=== PATIENT | male | born 1945 | race Caucasian/White ===

== ENCOUNTER → 2016-11-18 | Day surgery (SDC) | payer OTHER ==
[~2016-11-18] VITALS: Ht 180.3 cm; Wt 72.1 kg
[~2016-11-18] MED LIST: ACETAMINOPHEN 1000 MG/100 ML VIAL IV ONE; ACETAMINOPHEN/HYDROcodone 325 MG/5 MG TAB PO PRN; ASPI1TAB69 PO; BELLADONNA ALKALOIDS/OPIUM 60 MG SUPP RECTAL SCH; DEXAMETHASONE SOD PHOS 4 MG/ML VIAL ONE; DICLOFENAC SODIUM 37.5 MG/ML VIAL IV PUSH ONE; DO NOT ADM ANY ANTICOAGULANT DRUGS XX PRN; FAMOTIDINE 20 MG/2 ML VIAL ONE; INSULIN HUMAN REGULAR 1,000 UNITS/10 ML VIAL SQ PRN; IOHEXOL 350 MG/ML 50 ML BTL (for RAD DIAG) OTHER ONE; LACTATED RINGER'S 1000 ML IV SCH; LORA1TAB12 PO; METOPROLOL TARTRATE 25 MG TAB PO PRN; MIDAZOLAM HCL 2 MG/2 ML VIAL ONE; MULT1TAB85 PO; NEOSTIGMINE 3 MG/3 ML SYR IV ONE; ONDANSETRON HCL 4 MG/2 ML VIAL IV PUSH ONE; ONDANSETRON HCL 4 MG/2 ML VIAL IV PUSH PRN; PROPOFOL 200 MG/20 ML AMP IV ONE; SERT-129 PO; SODIUM CHLORID 0.9% 500 ML IV SCH; ceFAZolin 1,000 MG/NS 100 ML IV SCH; ePHEDrine/NS 50 MG/5 ML SYR IV ONE; fentaNYL CITRATE 250 MCG/5 ML AMP ONE
[2016-11-18 07:00] VITALS: BP 118/62; PULSE 55; RESP 20; TEMP 97.6; O2SAT 96
[2016-11-18 07:58] LABS: AUTOMATED NEUTROPHIL # 4.2 TH/MM3 (1.8-7.7); BASOPHIL # 0.1 TH/MM3 (0-0.2); BASOPHIL % 1.2 % (0.0-2.0); EOSINOPHIL # 0.4 TH/MM3 (0-0.4); EOSINOPHIL % 4.7 % (0.0-4.0); HEMO FLAGS DIFF FINAL; LYMPH % 28.1 % (9.0-44.0); LYMPHOCYTE # 2.1 TH/MM3 (1.0-4.8); MEAN CELL VOLUME 89.1 FL (80.0-100.0); MEAN CORPUSCULAR HEMOGLOBIN 31.6 PG (27.0-34.0); MEAN CORPUSCULAR HGB CONC 35.5 % (32.0-36.0); MONO % 9.9 % (0.0-8.0); NEUT % 56.1 % (16.0-70.0); PLATELET COUNT 215 TH/MM3 (150-450); RED CELL DISTRIBUTION WIDTH 12.8 % (11.6-17.2); WHITE BLOOD COUNT 7.5 TH/MM3 (4.0-11.0)
[2016-11-18 08:12] LABS: BICARBONATE 26.3 MEQ/L (21.0-32.0); POTASSIUM 3.7 MEQ/L (3.5-5.1)
[2016-11-18 10:35] VITALS: BP 90/50; PULSE 94; TEMP 97.3; O2SAT 94
--- NOTE | 2016-11-23 23:37 | MP ---
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 OPERATION: Cystoscopy, right retrograde study, bladder biopsy x3 of the left ureteral orifice with fulguration. SURGEON Carmen Vieyra MD. ANESTHESIA: General endotracheal anesthesia FLUIDS: 500 cc Crystalloid. BLOOD LOSS: None. COMPLICATIONS: None. FINDINGS: Some erythema above the left ureteral orifice at the prior tumor site. No significant bladder tumors were identified. The patient tolerated the procedure well. He was transferred to the Recovery Room in stable condition. DRAINS: None. INDICATIONS FOR PROCEDURE: Kayleigh Vieyra is a 70 year-old male with a history of transitional cell carcinoma of the left renal pelvis who underwent a left nephrectomy by Dr. Sage in the past. He also has a history of bladder cancer and he has undergone TURBT as well as BCG therapy for this in the past. He recently underwent cystoscopy by Dr. Sage in his office back in June of 2016 and a small area of erythema/CIS was identified above the left ureteral orifice. The patient desired to go to the operating room to have cystoscopy and bladder biopsy performed of this area due to the prior findings by Dr. Sage. The risks and benefits were discussed and he was willing to proceed. DESCRIPTION OF PROCEDURE: The patient was brought to the operating room, identified by myself as Kayleigh Vieyra. He was placed in the dorsolithotomy position, prepped and draped in the usual sterile fashion. He received preprocedure antibiotics and general endotracheal tube anesthesia was administered. A 22-[place] cystoscope was inserted in the bladder, pancystoscopy just showed some erythema above the left ureteral orifice. The remaining areas of the bladder on pancystoscopy showed no evidence of any bladder tumors or other abnormalities. He did, however, have a high-riding bladder neck and may need a transurethral resection of the bladder neck incision in the future if his voiding symptoms worsen. A 5-[place] open-ended catheter was inserted into the right ureteral orifice and retrograde study was performed. Good filling of the ureter on the right side with good filling also of the collecting system was identified. There were no filling defects identified. Attention then was directed to the area above the left ureteral orifice. Using the cold cup biopsy forceps, bladder biopsies x3 were taken of this area and were sent to pathology. Using the rollerball then this area was fulgurated to provide hemostasis. The bladder was evacuated and then refilled. No evidence of any bleeding was identified. The bladder was then emptied. He was awoken and transferred to recovery in stable condition. The plan for him will be to follow up in six weeks and review the pathology. If evidence of CIS is present, will consider re-instilling BCG for six weeks. Will also better investigate his voiding symptoms and determine if bladder neck incision in the future is warranted. Dylan ESPINAL/SILVIA /9:06 AM /10:57 PM
== END | disposition home or self-care (01) ==
LOC: HSDC 06:08
PROVIDERS: ATTEND Urology
DX: Z85.51 Personal history of malignant neoplasm of bladder (principal); Z85.53 Personal history of malignant neoplasm of renal pelvis; Z90.5 Acquired absence of kidney
CPT/HCPCS: 00910; 52204; 52214; 74420; 80048; 85025; 88305; J0131; J0690; J1100; J1130; J2250; J2405; J2710; J3010; J7120; Q9967; 88307

== ENCOUNTER 2017-05-05 10:04 | Inpatient (IN) | payer OTHER ==
[~2017-05-05] VITALS: Ht 177.8 cm; Wt 72.7 kg
[~2017-05-05 10:04] MED LIST changes: -ACETAMINOPHEN 1000 MG/100 ML VIAL IV ONE; -ACETAMINOPHEN/HYDROcodone 325 MG/5 MG TAB PO PRN; -BELLADONNA ALKALOIDS/OPIUM 60 MG SUPP RECTAL SCH; -DEXAMETHASONE SOD PHOS 4 MG/ML VIAL ONE; -DICLOFENAC SODIUM 37.5 MG/ML VIAL IV PUSH ONE; -DO NOT ADM ANY ANTICOAGULANT DRUGS XX PRN; -FAMOTIDINE 20 MG/2 ML VIAL ONE; -INSULIN HUMAN REGULAR 1,000 UNITS/10 ML VIAL SQ PRN; -IOHEXOL 350 MG/ML 50 ML BTL (for RAD DIAG) OTHER ONE; -LACTATED RINGER'S 1000 ML IV SCH; -METOPROLOL TARTRATE 25 MG TAB PO PRN; -MIDAZOLAM HCL 2 MG/2 ML VIAL ONE; -NEOSTIGMINE 3 MG/3 ML SYR IV ONE; -ONDANSETRON HCL 4 MG/2 ML VIAL IV PUSH ONE; -ONDANSETRON HCL 4 MG/2 ML VIAL IV PUSH PRN; -PROPOFOL 200 MG/20 ML AMP IV ONE; -SODIUM CHLORID 0.9% 500 ML IV SCH; -ceFAZolin 1,000 MG/NS 100 ML IV SCH; -ePHEDrine/NS 50 MG/5 ML SYR IV ONE; -fentaNYL CITRATE 250 MCG/5 ML AMP ONE
[2017-05-05 10:06] VITALS: BP 123/73; PULSE 71; RESP 16; TEMP 97.7; O2SAT 99
[2017-05-05] MEDS ORDERED: ASPI81CH CHEW (10:27)
[2017-05-05] MEDS ORDERED: MULTTAB67 PO (10:27)
[2017-05-05] MEDS ORDERED: LIDOCAINE VISCOUS 2% SOLN 15 ML UDC PO ONE (10:30)
[2017-05-05] MEDS ORDERED: ALUMINUM/MAGNESIUM/SIMETH 30 ML CUP PO ONE (10:30)
[2017-05-05] MEDS ORDERED: SODIUM CHLORIDE 0.9% FLUSH 10 ML FLUSH IVF PRN (10:30)
[2017-05-05 10:47] LABS: AUTOMATED NEUTROPHIL # 10.6 TH/MM3 (1.8-7.7); BASOPHIL # 0.1 TH/MM3 (0-0.2); BASOPHIL % 0.7 % (0.0-2.0); EOSINOPHIL # 0.4 TH/MM3 (0-0.4); EOSINOPHIL % 2.7 % (0.0-4.0); LYMPH % 13.9 % (9.0-44.0); LYMPHOCYTE # 1.9 TH/MM3 (1.0-4.8); MEAN CELL VOLUME 91.8 FL (80.0-100.0); MEAN CORPUSCULAR HEMOGLOBIN 30.8 PG (27.0-34.0); MEAN CORPUSCULAR HGB CONC 33.6 % (32.0-36.0); MONO % 6.8 % (0.0-8.0); NEUT % 75.9 % (16.0-70.0); PLATELET COUNT 232 TH/MM3 (150-450); RED CELL DISTRIBUTION WIDTH 12.4 % (11.6-17.2)
[2017-05-05 10:48] VITALS: O2SAT 95
[2017-05-05 10:48] LABS: HEMO FLAGS DIFF FINAL
[2017-05-05 11:00] LABS: POTASSIUM 3.9 MEQ/L (3.5-5.1)
[2017-05-05 11:03] LABS: BICARBONATE 27.3 MEQ/L (21.0-32.0)
--- NOTE | 2017-05-05 11:37 | PD ---
HPI Chief Complaint: ENT Complaint Time Seen by Provider: 10:16 Travel History International Travel<30 days: No Contact w/Intl Traveler<30days: No Traveled to known affect area: No History of Present Illness HPI Patient is 71 years old. For about a day and a half he's had pain in the left throat worse when swallowing. He's had no difficulty breathing. He is tolerating liquid and solid food without difficulty. He's had no fever. He denies similar prior episodes. No recent trauma. He has had no injury that he can identify. He describes the sensation as if there is a mass in the region of the left throat. Patient quit smoking 5 years ago however currently vapes. He states he uses oxygen at night. He states he has a history of bladder and kidney cancer. Patient has no chest pain or shortness of breath. PFSH Past Medical History Arthritis: Yes Autoimmune Disease: No Anxiety: Yes Depression: Yes Heart Rhythm Problems: No Cancer: Yes (BLADDER, colon) Cardiac Catheterization: No Cardiovascular Problems: No High Cholesterol: Yes Chemotherapy: No Congestive Heart Failure: No COPD: Yes (HOME O2) Diabetes: No Diminished Hearing: Yes Endocrine: No Gastrointestinal Disorders: Yes (REFLUX) Genitourinary: Yes (BLADDER CA) Hepatitis: No Hiatal Hernia: No Hypertension: No Immune Disorder: No Implanted Vascular Access Dvce: No Musculoskeletal: Yes (OA) Neurologic: No Psychiatric: Yes (ANXIETY) Reproductive: No Respiratory: Yes (COPD) Myocardial Infarction: No Radiation Therapy: No Thyroid Disease: No Triglycerides - High: Yes Tetanus Vaccination: < 5 Years Influenza Vaccination: Yes Past Surgical History Abdominal Surgery: Yes (HERNIA REPAIR, colon resection) AICD: No Cardiac Surgery: No Coronary Artery Bypass Graft: No Ear Surgery: No Endocrine Surgery: No Eye Surgery: No Genitourinary Surgery: Yes (2013 LEFT NEPHRECTOMY) Gynecologic Surgery: No Joint Replacement: No Oral Surgery: No Pacemaker: No Thoracic Surgery: No Other Surgery: Yes Family History Family Myocardial Infarction: Yes (FATHER 2 [place]) Social History Alcohol Use: No (6 PACK OF BEER DAILY NOW RARE) Tobacco Use: Yes (E CIG) Substance Use: No Allergies-Medications (Allergen,Severity, Reaction): Coded Allergies: No Known Allergies (Unverified , 05/05/17) Reported Meds & Prescriptions Reported Meds & Active Scripts Active Reported Multiple Vitamin 1 Tab 1 Tab PO DAILY Aspirin 81 Mg Chew 81 Mg CHEW DAILY Sertraline (Sertraline HCl) 100 Mg Tab 100 Mg PO DAILY Lorazepam 1 Mg Tab 0.5 Mg PO DAILY PRN Review of Systems Except as stated in HPI: all other systems reviewed are Neg General / Constitutional: No: Fever HENT: Positive: Sore Throat, Neck Pain Physical Exam Narrative GENERAL: 71-year-old male well-nourished well-developed no acute distress SKIN: Warm and dry. HEAD: Atraumatic. Normocephalic. EYES: Pupils equal and round. No scleral icterus. No injection or drainage. ENT: No nasal bleeding or discharge. Mucous membranes pink and moist. No significant tenderness to palpation in the area where the patient believes there is a mass. There is no palpable abnormality in the region of concern which is the left sub-mandibular and left anterolateral neck. Posterior oropharynx is widely patent. No tonsillar asymmetry or exudate or erythema. NECK: Trachea midline. No JVD. CARDIOVASCULAR: Regular rate and rhythm. RESPIRATORY: No accessory muscle use. Clear to auscultation. Breath sounds equal bilaterally. GASTROINTESTINAL: Abdomen soft, non-tender, nondistended. Hepatic and splenic margins not palpable. MUSCULOSKELETAL: Extremities without clubbing, cyanosis, or edema. No obvious deformities. NEUROLOGICAL: Awake and alert. No obvious cranial nerve deficits. Motor grossly within normal limits. Five out of 5 muscle strength in the arms and legs. Normal speech. PSYCHIATRIC: Appropriate mood and affect; insight and judgment normal. Data Data Last Documented VS Vital Signs Date Time Temp Pulse Resp B/P Pulse Ox O2 Delivery O2 Flow Rate FiO2 05/05/17 10:48 95 Room Air 05/05/17 10:06 97.7 71 16 123/73 Vital signs reviewed Orders Basic Metabolic Panel (Bmp) (05/05/17 10:20) Complete Blood Count With Diff (05/05/17 10:20) Iv Access Insert/Monitor (05/05/17 10:20) Oximetry (05/05/17 10:20) Sodium Chloride 0.9% Flush (Ns Flush) (05/05/17 10:30) Ct Soft Tiss Neck W Iv Cont (05/05/17 ) Al-Mag Hy-Si 40-40-4 Mg/Ml Liq (Mag-Al P (05/05/17 10:30) Lidocaine 2% Viscous (Xylocaine 2% Visco (05/05/17 10:30) Iodixanol 320 Inj (Rad Ct) (Visipaque 32 (05/05/17 11:41) Ampicillin-Sulbactam Inj (Unasyn Inj) (05/05/17 13:30) Dexamethasone Inj (Decadron Inj) (05/05/17 13:30) Consult Ent (05/05/17 ) Admit Order (Ed Use Only) (05/05/17 13:29) Labs Laboratory Tests Test 05/05/17 10:43 White Blood Count 14.0 TH/MM3 Red Blood Count 4.90 MIL/MM3 Hemoglobin 15.1 GM/DL Hematocrit 45.0 % Mean Corpuscular Volume 91.8 FL Mean Corpuscular Hemoglobin 30.8 PG Mean Corpuscular Hemoglobin 33.6 % Concent Red Cell Distribution Width 12.4 % Platelet Count 232 TH/MM3 Mean Platelet Volume 7.8 FL Neutrophils (%) (Auto) 75.9 % Lymphocytes (%) (Auto) 13.9 % Monocytes (%) (Auto) 6.8 % Eosinophils (%) (Auto) 2.7 % Basophils (%) (Auto) 0.7 % Neutrophils # (Auto) 10.6 TH/MM3 Lymphocytes # (Auto) 1.9 TH/MM3 Monocytes # (Auto) 1.0 TH/MM3 Eosinophils # (Auto) 0.4 TH/MM3 Basophils # (Auto) 0.1 TH/MM3 CBC Comment DIFF FINAL Differential Comment Sodium Level 142 MEQ/L Potassium Level 3.9 MEQ/L Chloride Level 108 MEQ/L Carbon Dioxide Level 27.3 MEQ/L Anion Gap 7 MEQ/L Blood Urea Nitrogen 13 MG/DL Creatinine 1.20 MG/DL Estimat Glomerular Filtration 60 ML/MIN Rate Random Glucose 93 MG/DL Calcium Level 9.0 MG/DL [facility] Medical Decision Making Medical Screen Exam Complete: Yes Emergency Medical Condition: Yes Medical Record Reviewed: Yes Differential Diagnosis Abscess, pharyngitis of a viral etiology, mass/neoplasm, GERD, lymphadenopathy, sialolith, cardiopulmonary disease Narrative Course CBC & BMP Diagram 05/05/17 10:[address]: Abnormal enhancement soft tissue thickening which begins "above the level of the larynx and extends down into the left side of the larynx. There is soft tissue thickening involving the posterior larynx extending across the midline. It is possible this is inflammatory however it is suspicious for malignancy." Bilateral carotid artery disease at the bifurcation with recommendation for ultrasonography. Patient has been resting comfortably here in the ER. Of note he states he has had pain with swallowing for 2 days. He has had no dyspnea, stridor, wheezing, or respiratory complaint in the ER. This case was discussed with ENT Dr. Wilson who advises admission for IV Decadron and IV Unasyn followed by direct visualization and perhaps a repeat CT if necessary. Patient is agreeable with plan. Due to potential for airway obstruction requiring tracheostomy admission to the main [facility] site is indicated. Case d/w Dr Barnett. Diagnosis Primary Impression: Mass of larynx Admitting Information Admitting Physician Requests: Admit Jagdish Chaudhry MD May 05, 2017 11:37 Jagdish Chaudhry MD May 05, 2017 11:37
[2017-05-05] MEDS ORDERED: IODIXANOL 320 MG/ML 10 ML VIAL (for Rad CT) IV ONE (11:41)
--- NOTE | 2017-05-05 13:08 | RADRPT ---
EXAM DATE/TIME: 05/05/2017 11:18 [facility] COMPARISON: CT PULMONARY ANGIOGRAM, July 07, 2016, 17:53. INDICATIONS : Difficulty swallowing, pain to left side of throat. IV CONTRAST: 46 cc Visipaque (iodixanol) IV RADIATION DOSE: 12.96 CTDIvol (mGy) MEDICAL HISTORY : Carcinoma, colon. Carcinoma, bladder. Chronic obstructive pulmonary disease.Acid reflux. SURGICAL HISTORY : Nephrectomy, left. ENCOUNTER: Initial ACUITY: 1 day PAIN SCALE: 5/10 LOCATION: Left neck TECHNIQUE: Volumetric scanning of the neck was performed. Using automated exposure control and adjustment of th e mA and/or kV according to patient size, radiation dose was kept as low as reasonably achievable to obtain optimal diagnostic quality images. DICOM format image data is available electronically for r eview and comparison. FINDINGS: The examination demonstrates abnormal soft tissue thickening and some heterogeneous enhancement which begins just above the level of the larynx and extends down into the left side of the larynx. There i s soft tissue thickening involving the posterior larynx extending across midline. It is possible this is inflammatory however, it is suspicious for malignancy. No other abnormal enhancement is identifie d. The soft tissues of the nasopharynx and oropharynx are within normal limits. The parotid and submandi bular glands are intact. No significant jugular or posterior cervical adenopathy is seen. There is visualization of the carotid arteries. There is high grade stenosis involving the origin of the left internal carotid. There is at least moderate stenosis in the origin of the right internal ca rotid. These are only partially visualized. The visualized bony structures are grossly intact. CONCLUSION: 1. There is abnormal enhancement and soft tissue thickening which begins in the upper left side of th e larynx. This is described above. It is possible this is inflammatory however it is concerning for m alignancy an ENT evaluation would be warranted for further assessment. The soft tissue thickening pete ears to extend across midline. 2. Bilateral carotid artery disease at the bifurcation. Ultrasound for further assessment would be wa rranted. 3. No significant adenopathy identified. 4. COPD changes in the lung apices. Jarrell Sage Jr., MD on May 05, 2017 at 12:05 Board Certified Radiologist. This report was verified electronically.
[2017-05-05] MEDS ORDERED: AMPICILLIN-SULBACTAM INJ 3 GM in SODIUM CHLORIDE 0.9% INJ 100 ML IV ONE (13:30)
[2017-05-05] MEDS ORDERED: DEXAMETHASONE SOD PHOS 20 MG/5 ML VIAL IV PUSH ONE (13:30)
[2017-05-05 14:31] VITALS: BP 106/52; PULSE 69; RESP 16; O2SAT 97
[2017-05-05 14:33] VITALS: O2SAT 97
--- NOTE | 2017-05-05 14:48 | HHI.HP ---
HPI [facility] Primary Care Physician Zuleyka Askew MD Admission Diagnosis Trachea Mass Chief Complaint: left ant neck pain, sore throat Travel History International Travel<30 Days: No Contact w/Intl Traveler <30 Da: No Traveled to Known Affected Are: No Past Family Social History Past Medical History Bladder cancer diagnosed roughly 12 years ago History of colon cancer status post surgical resection in 2010 Alcohol abuse Anxiety Depression Urothelial carcinoma of the left kidney COPD Hyperlipidemia Past Surgical History Multiple transurethral resections of bladder tumors Partial colon resection 2011 Left nephrectomy Multiple cystoscopies Allergies: Coded Allergies: No Known Allergies (Unverified , 05/05/17) Family History Father of CA in his 70s and had a couple prior coronary artery bypass grafts Mother at age 78 and mcfp of some type of "infection One sister of lung cancer and another sister of results for motor vehicle accident injuries He has 4 other sisters are relatively healthy Social History Lives in [facility] and has been in this area for 46 years. Originally from [place] Works with [employer] in maintenance drank 6 beers a day, but stopped several months ago Smokes and e-cigarette several times a day and previously smoked 1 to 1 1/2 pack per day of cigarettes for approximately 50 years. He has not smoked a tobacco based cigarette in 4-5 years Physical Exam Vital Signs Vital Signs Date Time Temp Pulse Resp B/P Pulse Ox O2 Delivery O2 Flow Rate FiO2 05/05/17 14:33 97 Room Air 05/05/17 14:31 69 16 106/52 97 Room Air 05/05/17 10:48 95 Room Air 05/05/17 10:06 97.7 71 16 123/73 99 Physical Exam GENERAL: This is a well-nourished, well-developed patient, in no apparent distress. a/o. SKIN: No rashes, ecchymoses or lesions. Cool and dry. HEAD: Atraumatic. Normocephalic. No temporal or scalp tenderness. EYES: Pupils equal round and reactive. Extraocular motions intact. No scleral icterus. No injection or drainage. ENT: Nose without bleeding, purulent drainage or septal hematoma. Throat with mild erythema, no exudate. Uvula midline. Airway patent. NECK: Trachea midline. No JVD or lymphadenopathy. Left ant neck with slight fullness and ttp. CARDIOVASCULAR: Regular rate and rhythm without murmurs, gallops, or rubs. RESPIRATORY: Clear to auscultation. Breath sounds equal bilaterally. No wheezes , rales, or rhonchi. GASTROINTESTINAL: Abdomen soft, non-tender, nondistended. No hepato-splenomegaly , or palpable masses. No guarding. MUSCULOSKELETAL: Extremities without clubbing, cyanosis, or edema. No joint tenderness, effusion, or edema noted. No calf tenderness. NEUROLOGICAL: Awake and alert. Cranial nerves II through XII intact. Motor and sensory grossly within normal limits. Five out of 5 muscle strength in all muscle groups. Normal speech. Laboratory Laboratory Tests Test 05/05/17 10:43 White Blood Count 14.0 Red Blood Count 4.90 Hemoglobin 15.1 Hematocrit 45.0 Mean Corpuscular Volume 91.8 Mean Corpuscular Hemoglobin 30.8 Mean Corpuscular Hemoglobin 33.6 Concent Red Cell Distribution Width 12.4 Platelet Count 232 Mean Platelet Volume 7.8 Neutrophils (%) (Auto) 75.9 Lymphocytes (%) (Auto) 13.9 Monocytes (%) (Auto) 6.8 Eosinophils (%) (Auto) 2.7 Basophils (%) (Auto) 0.7 Neutrophils # (Auto) 10.6 Lymphocytes # (Auto) 1.9 Monocytes # (Auto) 1.0 Eosinophils # (Auto) 0.4 Basophils # (Auto) 0.1 CBC Comment DIFF FINAL Differential Comment Sodium Level 142 Potassium Level 3.9 Chloride Level 108 Carbon Dioxide Level 27.3 Anion Gap 7 Blood Urea Nitrogen 13 Creatinine 1.20 Estimat Glomerular Filtration 60 Rate Random Glucose 93 Calcium Level 9.0 Result Diagram: 05/05/17 1043 05/05/17 1043 Imaging Last [address] 05/05/17 0000 Signed Impressions: Service Date/Time: April 11:18 - CONCLUSION: 1. There is abnormal enhancement and soft tissue thickening which begins in the upper left side of the larynx. This is described above. It is possible this is inflammatory however it is concerning for malignancy an ENT evaluation would be warranted for further assessment. The soft tissue thickening appears to extend across midline. 2. Bilateral carotid artery disease at the bifurcation. Ultrasound for further assessment would be warranted. 3. No significant adenopathy identified. 4. COPD changes in the lung apices. Jarrell Sage Jr., MD Assessment and Plan Problem List: (1) Mass of larynx Status: Acute Plan: will be seen by ENT at [facility] campus appears stable. has received decadron and abx. (2) COPD (chronic obstructive pulmonary disease) Status: Chronic Plan: stable. duoneb. supplemental oxygen as needed. (3) Anxiety Status: Chronic Plan: ativan prn (4) History of bladder cancer Status: Chronic Plan: outpt tx Code Status full Discussed Condition With pt and ER provider Siddhartha Vera MD PhD May 05, 2017 14:48
[2017-05-05] MEDS ORDERED: RESP: ALBUTEROL 2.5 MG/IPRATROPIUM 0.5 MG NEB (PRN) NEB (15:00)
--- NOTE | 2017-05-05 16:39 | RADRPT ---
EXAM DATE/TIME: 05/05/2017 15:38 [facility] COMPARISON: No previous studies available for comparison. INDICATIONS : Carotid stenosis. MEDICAL HISTORY : Hypercholesterolemia. Chronic obstructive pulmonary disease. Gastroesophageal reflux disease. Hyperli pidemia. Colorectal cancer. Left kidney cancer. Bladder cancer. SURGICAL HISTORY : Colon resection. Nephrectomy, left. Right knee surgery. Hernia repair. ENCOUNTER: Initial ACUITY: 1 day PAIN SCORE: 0/10 LOCATION: Bilateral neck PEAK SYSTOLIC VELOCITIES (cm/sec): ICA/CCA RATIO: Right: 1.0 Left: 1.1 ICA: Right: 99 Left: 117 CCA: Right: 101 Left: 107 ECA: Right: 130 Left: 156 VERTEBRAL: Right: 66 antegrade Left: 39 antegrade Elevated flow velocities and ICA/CCA ratios have been found to correlate with increased degrees of vessel stenosis, calculated as percentage of diameter relative to a normal segment of distal ICA/CCA FINDINGS: RIGHT CAROTID: No significant stenosis is visualized. The waveforms are within normal limits. LEFT CAROTID: No significant stenosis is visualized. The waveforms are within normal limits. VERTEBRAL ARTERIES: Antegrade flow is seen in both vertebral arteries. MISCELLANEOUS: None. CONCLUSION: 1. No significant flow-limiting stenosis. 2. Antegrade bilateral vertebral artery flow. Abhay Eid MD on May 05, 2017 at 16:36 Board Certified Radiologist. This report was verified electronically.
[2017-05-05 17:39] VITALS: BP 127/72; PULSE 65; RESP 16; TEMP 97.7; O2SAT 95
[2017-05-05 20:00] VITALS: BP 126/79; PULSE 66; RESP 15; TEMP 97.8; O2SAT 96
[2017-05-05] MEDS: methylPREDNISolone SOD SUCC 40 MG/1 ML VIAL IV PUSH SCH (20:53)
[2017-05-05] MEDS: LORazepam 1 MG TAB PO PRN (20:53)
[2017-05-06] VITALS: BP 112/61; PULSE 57; RESP 15; TEMP 97.8; O2SAT 98
[2017-05-06 04:00] VITALS: BP 95/46; PULSE 60; RESP 15; TEMP 96.4; O2SAT 97
--- NOTE | 2017-05-06 06:52 | PD.CONS ---
History of Present Illness Service ENT Consult Requested By ED Reason for Consult Laryngeal mass Primary Care Physician Zuleyka Askew MD Diagnoses: History of Present Illness 71 year old jez with 2days left neck pain. Was seen at ED and had a CT showing significant laryngeal edema. He did have an elevated WBC to 14,000. Due to potential airway issued with laryngeal mass he was started on iv steroids and antibiotics and moved to [facility]. He has responded well to therapy and feels less pain. He has no airway obstruction now. Review of Systems Ears, nose, mouth, throat: COMPLAINS OF: Throat pain, Hoarseness, DENIES: Nasal discharge, Oral lesions Past Family Social History Allergies: Coded Allergies: No Known Allergies (Unverified , 05/05/17) Physical Exam Vital Signs Vital Signs Date Time Temp Pulse Resp B/P Pulse Ox O2 Delivery O2 Flow Rate FiO2 05/06/17 04:00 96.4 60 15 95/46 97 05/06/17 00:00 97.8 57 15 112/61 98 05/05/17 20:00 97.8 66 15 126/79 96 05/05/17 17:39 97.7 65 16 127/72 95 Room Air 05/05/17 14:33 97 Room Air 05/05/17 14:31 69 16 106/52 97 Room Air 05/05/17 10:48 95 Room Air 05/05/17 10:06 97.7 71 16 123/73 99 Physical Exam GENERAL: This is a well-nourished, well-developed patient, in no apparent distress. SKIN: No rashes, ecchymoses or lesions. Cool and dry. HEAD: Atraumatic. Normocephalic. No temporal or scalp tenderness. EYES: Pupils equal round and reactive. Extraocular motions intact. No scleral icterus. No injection or drainage. ENT: Nose without bleeding, purulent drainage or septal hematoma. Throat without erythema, tonsillar hypertrophy or exudate. Uvula midline. Airway patent. NECK: Trachea midline. No JVD or lymphadenopathy. Supple, nontender, no meningeal signs. NEUROLOGICAL: Awake and alert. Laboratory Laboratory Tests Test 05/05/17 10:43 White Blood Count 14.0 Red Blood Count 4.90 Hemoglobin 15.1 Hematocrit 45.0 Mean Corpuscular Volume 91.8 Mean Corpuscular Hemoglobin 30.8 Mean Corpuscular Hemoglobin 33.6 Concent Red Cell Distribution Width 12.4 Platelet Count 232 Mean Platelet Volume 7.8 Neutrophils (%) (Auto) 75.9 Lymphocytes (%) (Auto) 13.9 Monocytes (%) (Auto) 6.8 Eosinophils (%) (Auto) 2.7 Basophils (%) (Auto) 0.7 Neutrophils # (Auto) 10.6 Lymphocytes # (Auto) 1.9 Monocytes # (Auto) 1.0 Eosinophils # (Auto) 0.4 Basophils # (Auto) 0.1 CBC Comment DIFF FINAL Differential Comment Sodium Level 142 Potassium Level 3.9 Chloride Level 108 Carbon Dioxide Level 27.3 Anion Gap 7 Blood Urea Nitrogen 13 Creatinine 1.20 Estimat Glomerular Filtration 60 Rate Random Glucose 93 Calcium Level 9.0 Result Diagram: 05/05/17 1043 05/05/[address] reviewed Assessment and Plan Assessment and Plan 71 year old male with laryngeal mass on CT. He is responding to medical therapy. Would continue IV meds today. Will plan bedside laryngoscopy tomorrow morning. If he is clear can discharge tomorrow morning. OK for full diet. Franco Wilson MD May 06, 2017 06:52
[2017-05-06 08:00] VITALS: BP 140/68; PULSE 59; RESP 19; TEMP 96.6; O2SAT 95
[2017-05-06] MEDS: SERTRALINE HCL 100 MG TAB PO SCH (08:44)
[2017-05-06] MEDS: methylPREDNISolone SOD SUCC 40 MG/1 ML VIAL IV PUSH SCH ×3 (08:44→20:48)
[2017-05-06] MEDS: MULTIVITAMIN TAB PO SCH (08:44)
[2017-05-06] MEDS: LORazepam 1 MG TAB PO PRN (08:44)
--- NOTE | 2017-05-06 09:48 | HHI.PR ---
Subjective Remarks swallowing easier with less pain Objective Vitals heart reg lng cta abd s/nt ext no edema Vital Signs Date Time Temp Pulse Resp B/P Pulse Ox O2 Delivery O2 Flow Rate FiO2 05/06/17 08:00 96.6 59 19 140/68 95 05/06/17 04:00 96.4 60 15 95/46 97 05/06/17 00:00 97.8 57 15 112/61 98 05/05/17 20:00 97.8 66 15 126/79 96 05/05/17 17:39 97.7 65 16 127/72 95 Room Air 05/05/17 14:33 97 Room Air 05/05/17 14:31 69 16 106/52 97 Room Air 05/05/17 10:48 95 Room Air 05/05/17 10:06 97.7 71 16 123/73 99 05/05/17 05/05/17 05/06/17 15:00 23:00 07:00 Intake Total 100 ml 480 ml 480 ml Balance 100 ml 480 ml 480 ml Intake Oral 480 ml 480 ml IV Total 100 ml # Voids 2 3 Result Diagram: 05/05/17 1043 05/05/17 1043 Imaging Last [address] 05/05/17 0000 Signed Impressions: Service Date/Time: April 11:18 - CONCLUSION: 1. There is abnormal enhancement and soft tissue thickening which begins in the upper left side of the larynx. This is described above. It is possible this is inflammatory however it is concerning for malignancy an ENT evaluation would be warranted for further assessment. The soft tissue thickening appears to extend across midline. 2. Bilateral carotid artery disease at the bifurcation. Ultrasound for further assessment would be warranted. 3. No significant adenopathy identified. 4. COPD changes in the lung apices. Jarrell Sage Jr., MD A/P Problem List: (1) Mass of larynx Status: Acute Plan: Pt transferred from P.O with largyngeal mass inflammatory/infectious vs malignant responding to abx and steroid laryngoscope tomorrow and d/c if stable ENT following. (2) COPD (chronic obstructive pulmonary disease) Status: Chronic Plan: stable. duoneb. supplemental oxygen as needed. (3) Anxiety Status: Chronic Plan: ativan prn (4) History of bladder cancer Status: Chronic Plan: outpt tx Ran Xiong MD 14, 2017 09:47
[2017-05-06 11:41] LABS: AUTOMATED NEUTROPHIL # 25.1 TH/MM3 (1.8-7.7); BASOPHIL % 0.1 % (0.0-2.0); HEMATOCRIT 43.1 % (39.0-51.0); HEMO FLAGS DIFF FINAL; LYMPHOCYTE # 1.4 TH/MM3 (1.0-4.8); MEAN CORPUSCULAR HEMOGLOBIN 31.5 PG (27.0-34.0); MONO % 3.6 % (0.0-8.0); NEUT % 91.3 % (16.0-70.0); PLATELET COUNT 239 TH/MM3 (150-450); RED BLOOD COUNT 4.79 MIL/MM3 (4.50-5.90); RED CELL DISTRIBUTION WIDTH 12.7 % (11.6-17.2); WHITE BLOOD COUNT 27.4 TH/MM3 (4.0-11.0)
[2017-05-06 12:00] VITALS: BP 117/63; PULSE 68; RESP 19; TEMP 96.8; O2SAT 95
[2017-05-06] MEDS: PIPERACIL-TAZO 3.375 GM PREMIX 50 ML IV SCH ×2 (12:16→17:36)
[2017-05-06] MEDS: ALUMINUM/MAGNESIUM/SIMETH 30 ML CUP PO PRN (14:47)
[2017-05-06 16:00] VITALS: BP 123/63; PULSE 58; RESP 19; TEMP 96.5; O2SAT 98
[2017-05-06 20:00] VITALS: BP 122/63; PULSE 60; RESP 16; TEMP 97.5; O2SAT 95
[2017-05-07] VITALS: BP 110/55; PULSE 57; RESP 16; TEMP 97.1; O2SAT 97
[2017-05-07] MEDS: PIPERACIL-TAZO 3.375 GM PREMIX 50 ML IV SCH ×2 (00:43→05:53)
[2017-05-07] MEDS: ALUMINUM/MAGNESIUM/SIMETH 30 ML CUP PO PRN (03:38)
[2017-05-07] MEDS: methylPREDNISolone SOD SUCC 40 MG/1 ML VIAL IV PUSH SCH ×2 (03:38→08:12)
[2017-05-07] MEDS ORDERED: ONDANSETRON HCL 4 MG/2 ML VIAL IV PUSH PRN (03:45)
[2017-05-07 04:00] VITALS: BP 151/75; PULSE 59; RESP 16; TEMP 96.6; O2SAT 96
--- NOTE | 2017-05-07 07:49 | HHI.PR ---
Subjective Remarks Feels well today. Tolerating diet. No airway symptoms. Objective Fiberoptic laryngoscopy: Normal larynx. No edema, good mobility. Vital Signs Date Time Temp Pulse Resp B/P Pulse Ox O2 Delivery O2 Flow Rate FiO2 05/07/17 04:00 96.6 59 16 151/75 96 05/07/17 00:00 97.1 57 16 110/55 97 05/06/17 20:00 97.5 60 16 122/63 95 05/06/17 16:00 96.5 58 19 123/63 98 05/06/17 12:00 96.8 68 19 117/63 95 05/06/17 08:00 96.6 59 19 140/68 95 I/O 05/06/17 05/06/17 05/06/17 05/07/17 05/07/17 05/07/17 07:00 15:00 23:00 07:00 15:00 23:00 Intake Total 480 ml 480 ml 240 ml Balance 480 ml 480 ml 240 ml Intake Oral 480 ml 480 ml 240 ml # Voids 3 2 2 Result Diagram: 05/06/17 1113 05/05/17 1043 Assessment and Plan Assessment and Plan 71 year old male with laryngeal mass on CT. Symptoms resolved. Normal exam. Suggest follow up in 2 weeks in Office. Would discharge on 1 week Augmentin 875mg BID. Does not need steroids. Franco Wilson MD May 07, 2017 07:49
[2017-05-07] MEDS: SERTRALINE HCL 100 MG TAB PO SCH (08:12)
[2017-05-07] MEDS: MULTIVITAMIN TAB PO SCH (08:12)
--- NOTE | 2017-05-07 08:15 | HHI.PR ---
Subjective Remarks pt sx's much improved wants to go home Objective Vitals heart reg lung cta abd s/nt ext no edema Vital Signs Date Time Temp Pulse Resp B/P Pulse Ox O2 Delivery O2 Flow Rate FiO2 05/07/17 04:00 96.6 59 16 151/75 96 05/07/17 00:00 97.1 57 16 110/55 97 05/06/17 20:00 97.5 60 16 122/63 95 05/06/17 16:00 96.5 58 19 123/63 98 05/06/17 12:00 96.8 68 19 117/63 95 05/06/17 05/06/17 05/07/17 15:00 23:00 07:00 Intake Total 480 ml 240 ml Balance 480 ml 240 ml Intake Oral 480 ml 240 ml # Voids 2 2 Result Diagram: 05/06/17 1113 05/05/17 1043 Imaging Last [address] 05/05/17 0000 Signed Impressions: Service Date/Time: April 11:18 - CONCLUSION: 1. There is abnormal enhancement and soft tissue thickening which begins in the upper left side of the larynx. This is described above. It is possible this is inflammatory however it is concerning for malignancy an ENT evaluation would be warranted for further assessment. The soft tissue thickening appears to extend across midline. 2. Bilateral carotid artery disease at the bifurcation. Ultrasound for further assessment would be warranted. 3. No significant adenopathy identified. 4. COPD changes in the lung apices. Jarrell Sage Jr., MD A/P Problem List: (1) Mass of larynx Status: Acute Plan: Pt transferred from P.[place] with largyngeal mass inflammatory/infectious vs malignant Dr Wilson looked with laryngoscope today and feels he just had bad laryngitis d/c home on augmentin with 2 weeks f/u as needed. (2) COPD (chronic obstructive pulmonary disease) Status: Chronic Plan: stable. duoneb. supplemental oxygen as needed. (3) Anxiety Status: Chronic Plan: ativan prn (4) History of bladder cancer Status: Chronic Plan: outpt tx Ran Xiong MD May 07, 2017 08:15
[2017-05-07] MEDS ORDERED: AUGM875T3 PO (08:16)
--- NOTE | 2017-05-07 08:17 | HHI.DCPOC ---
Discharge Care Plan Diagnosis: (1) Laryngitis Goals to Promote Your Health * To prevent worsening of your condition and complications * To maintain your health at the optimal level Directions to Meet Your Goals Take your medications as prescribed Follow your dietary instruction Follow activity as directed Keep your appointments as scheduled Take your immunizations and boosters as scheduled If your symptoms worsen call your PCP, if no PCP go to Urgent Care Center or Emergency Room Smoking is Dangerous to Your Health. Avoid second hand smoke Call the 24-hour hour crisis hotline for domestic abuse at Ran Xiong MD May 07, 2017 08:17
== END 2017-05-07 09:24 | disposition home or self-care (01) | DRG 153 ==
LOC: PHED 10:04 → INTOOBSV 13:30 → PHEDA 13:30 → HOCB 19:17 → OBSVTOIN 05-06 11:13
PROVIDERS: ADMIT Hospitalist; ATTEND Hospitalist
PROC: 0CJS8ZZ Inspection of Larynx, Via Natural or Artificial Opening Endoscopic (ICD-10-PCS; principal; 2017-05-06)
DX: J04.0 Acute laryngitis (principal); Z99.81 Dependence on supplemental oxygen; J44.9 Chronic obstructive pulmonary disease, unspecified; Z85.51 Personal history of malignant neoplasm of bladder; Z85.528 Personal history of other malignant neoplasm of kidney; M19.90 Unspecified osteoarthritis, unspecified site; E78.00 Pure hypercholesterolemia, unspecified; F41.9 Anxiety disorder, unspecified; F32.9 Major depressive disorder, single episode, unspecified; H91.90 Unspecified hearing loss, unspecified ear; K21.9 Gastro-esophageal reflux disease without esophagitis; Z85.038 Personal history of other malignant neoplasm of large intestine; M54.2 Cervicalgia; J02.9 Acute pharyngitis, unspecified; E78.5 Hyperlipidemia, unspecified; Z80.1 Family history of malignant neoplasm of trachea, bronchus and lung; Z82.49 Family history of ischemic heart disease and other diseases of the circulatory system; Z87.891 Personal history of nicotine dependence; R13.10 Dysphagia, unspecified
CPT/HCPCS: 70491; 80048; 85025; 93880; G0378; J0295; J1100; J2405; J2543; J2920; Q9967

== ENCOUNTER → 2018-04-06 | Day surgery (SDC) | payer OTHER ==
[~2018-04-06] VITALS: Ht 177.8 cm; Wt 72.4 kg
[~2018-04-06] MED LIST changes: +ACETAMINOPHEN 325 MG TAB PO PRN; +ASPI-516 CHEW; -ASPI1TAB69 PO; +BELLADONNA ALKALOIDS/OPIUM 60 MG SUPP RECTAL ONE; +CHLORHEXIDINE GLUCONATE 2 % 1 PACK (2 CLOTHS) TOPICAL PRN; +DO NOT ADM ANY ANTICOAGULANT DRUGS PRN; +HYDROmorphone HCL PF 2 MG/ML VIAL IV PRN; +LACTATED RINGER'S 1000 ML IV PRN; +METOPROLOL TARTRATE 25 MG TAB PO PRN; +MIDAZOLAM HCL 2 MG/2 ML VIAL ONE; -MULT1TAB85 PO; +MULTTAB67 PO; +ONDANSETRON ODT 4 MG TAB SL PRN; +POVIDONE IODINE 5% (ANTISEPSIS KIT) 4 APPLICATIONS EACH NARE PRN; +SODIUM CHLORID 0.9% 500 ML IV PRN; +ceFAZolin 1,000 MG/NS 100 ML IV SCH
[2018-04-06 11:16] LABS: AUTOMATED NEUTROPHIL # 4.9 TH/MM3 (1.8-7.7); BASOPHIL # 0.1 TH/MM3 (0-0.2); BASOPHIL % 1.3 % (0.0-2.0); EOSINOPHIL # 0.3 TH/MM3 (0-0.4); EOSINOPHIL % 3.6 % (0.0-4.0); HEMATOCRIT 43.8 % (39.0-51.0); HEMOGLOBIN 15.3 GM/DL (13.0-17.0); LYMPH % 27.5 % (9.0-44.0); LYMPHOCYTE # 2.3 TH/MM3 (1.0-4.8); MEAN CORPUSCULAR HEMOGLOBIN 31.5 PG (27.0-34.0); MEAN PLATELET VOLUME 8.6 FL (7.0-11.0); MONO % 7.8 % (0.0-8.0); MONOCYTE # 0.6 TH/MM3 (0-0.9); NEUT % 59.8 % (16.0-70.0); PLATELET COUNT 226 TH/MM3 (150-450); RED BLOOD COUNT 4.86 MIL/MM3 (4.50-5.90); RED CELL DISTRIBUTION WIDTH 12.4 % (11.6-17.2); WHITE BLOOD COUNT 8.2 TH/MM3 (4.0-11.0)
--- NOTE | 2018-04-06 14:11 | PD.OP ---
Operative Report Date of Surgery: Apr 06, 2018 Preoperative Diagnosis: Low-grade noninvasive bladder cancer Postoperative Diagnosis: Same Procedure: Cystoscopy with bladder biopsies and fulguration of small bladder tumors Anesthesia: General LMA Surgeon: Dylan Vieyra Printer'S Devil(s): None Resident Surgeon: None Operation and Findings: 72-year-old male with a history of low-grade noninvasive bladder cancer who presented today for cystoscopy with possible transurethral resection of a few small bladder tumors. The patient underwent cystoscopy in the office in the past which demonstrated small bladder tumor near the left ureteral orifice and left trigone region. Risk and benefits were discussed preoperatively the patient was willing to proceed. Patient was brought to the operating room and identified by myself as Katerin Vieyra. He was placed in dorsal lithotomy position, prepped and draped in sterile fashion, received preprocedure antibiotics and general LMA anesthesia was administered. 22 Martiniquais cystoscope was inserted in the bladder durbin cystoscopy showed some small bladder tumors near the left ureteral orifice and left posterior wall. I did not see any bladder tumor in the trigone area. Using the cold cup biopsy forceps the small tumors were removed without difficulty. The tumor size was approximately 1 cm. 4 biopsies were taken consisting of small bladder tumors. These were then sent to pathology. The resectoscope was inserted with the rollerball in place and the areas were fulgurated around the left ureteral orifice. Care was taken to avoid the left ureteral orifice. There was some erythema near the area of the dome and this was also fulgurated. Hemostasis was obtained. The patient tolerated the procedure well and was awoken and extubated and transferred recovery in stable condition. He will follow-up in one month to review his pathology. Consideration for BCG will be discussed. Dylan Vieyra DO Apr 06, 2018 14:11
[2018-04-06 15:45] VITALS: BP 110/59; PULSE 57; RESP 20; TEMP 98.3; O2SAT 96
--- NOTE | 2018-04-06 18:39 | EKG ---
Date Performed: 04/06/2018 Time Performed: 10:32:18 PTAGE: 72 years EKG: Sinus rhythm NONSPECIFIC T-WAVE ABNORMALITY BORDERLINE ECG PREVIOUS TRACING : 07/03/2016 11.50 Since the previous tracing, no significant change noted DOCTOR: Moon Alexandra Interpretating Date/Time 04/06/2018 18:37:04
== END | disposition home or self-care (01) ==
LOC: HSDC 10:03
PROVIDERS: ATTEND Urology
DX: C67.9 Malignant neoplasm of bladder, unspecified (principal); R94.31 Abnormal electrocardiogram [ECG] [EKG]
CPT/HCPCS: 00912; 52234; 85025; 88112; 88307; 93005; J0690; J2250; J3010; J7120